=== PATIENT | female | born 1990 | race Caucasian/White ===

== ENCOUNTER 2025-05-17 19:43 | Emergency (ER) | payer BC ==
[2025-05-17 19:49] VITALS: BP 122/76; PULSE 71; RESP 16; TEMP 98.8; BMI 20.5
[2025-05-17] MEDS ORDERED: CEPHALEXIN MONOHYDRATE 500 MG CAPSULE (UD) PO ONE (20:02)
[2025-05-17] MEDS: CEFUROXIME AXETIL 500 MG TABLET PO ONE (20:39)
== END 2025-05-17 20:39 | disposition home or self-care (01) ==
LOC: JER 19:43
DX: L03.116 Cellulitis of left lower limb (principal); M79.672 Pain in left foot
CPT/HCPCS: 73610-TC-LT-FY; 73630-TC-LT; 99284-25

== ENCOUNTER 2025-05-18 13:41 | Emergency (ER) | payer BC ==
[2025-05-18 13:53] VITALS: BP 108/66; PULSE 69; RESP 19; TEMP 97.9; BMI 20.5
[2025-05-18] MEDS ORDERED: KETOROLAC TROMETHAMINE 30 MG/1 ML VIAL ONE (14:48)
[2025-05-18] MEDS ORDERED: AMPICILLIN NA/SULBACTAM NA 3 GM/100 ML BAG IVPB ONE (14:48)
[2025-05-18] MEDS: KETOROLAC TROMETHAMINE 30 MG/1 ML VIAL IVPUSH ONE (14:49)
[2025-05-18] MEDS: AMPICILLIN NA/SULBACTAM NA 3 GM in SODIUM CHLORIDE 100 ML IVPB ONE (14:49)
[2025-05-18 15:22] LABS: MCHC 33.7 g/dl (32.2-35.5); MEAN CELL VOLUME 93.4 fl (79.4-94.8); MEAN PLT VOLUME 10.3 fl (9.4-12.3); RDW 11.8 % (12.1-16.8)
[2025-05-18] MEDS ORDERED: ONDANSETRON 4 MG/2 ML VIAL IVPUSH ONE (15:31)
[2025-05-18] MEDS ORDERED: ONDANSETRON *ODT* 4 MG TABLET ONE (15:44)
[2025-05-18 15:46] LABS: CO2 22.0 mmol/L (21-32); GLUCOSE,RANDOM 93.0 mg/dL (74-106)
[2025-05-18 15:49] LABS: CREATININE 0.8 mg/dL (0.55-1.3); SGOT/AST 33.0 U/L (15-37); SGPT/ALT 26.0 U/L (13-61)
[2025-05-18 15:51] LABS: TOT PROT 7.1 g/dl (6.4-8.2)
[2025-05-18 15:52] LABS: ALK PHOS 57.0 U/L (45-117)
== END 2025-05-18 16:01 | disposition home or self-care (01) ==
LOC: JER 13:41
PROC: 0J9R3ZZ Drainage of Left Foot Subcutaneous Tissue and Fascia, Percutaneous Approach (ICD-10-PCS; principal; 2025-05-18)
PROC: 3E03329 Introduction of Other Anti-infective into Peripheral Vein, Percutaneous Approach (ICD-10-PCS; 2025-05-18)
PROC: 3E0333Z Introduction of Anti-inflammatory into Peripheral Vein, Percutaneous Approach (ICD-10-PCS; 2025-05-18)
DX: L02.612 Cutaneous abscess of left foot (principal)
CPT/HCPCS: 36415; 80053; 85027; 87070; 87077; 87205; 99284-25; Q0162